=== PATIENT | male | born 1960 | race Hispanic/Latino ===

== ENCOUNTER 2017-03-13 09:23 | Day surgery (SDC) | payer BC ==
[2017-03-13] MEDS ORDERED: NACL 0.9% 1000 ML 1,000 ML IV SCH (10:00)
--- NOTE | 2017-03-13 10:38 | Anesthesia Consultation ---
Anesthesia Consult and Med Hx Date of service: 03/13/17 - Airway Anesthetic Teeth Evaluation: Good ROM Head & Neck: Adequate Mental/Hyoid Distance: Adequate Mallampati Class: Class II Intubation Access Assessment: Probably Good - Pulmonary Exam CTA: Yes - Cardiac Exam Cardiac Exam: RRR - Pre-Operative Health Status ASA Pre-Surgery Classification: ASA2 Proposed Anesthetic Plan: MAC - Pulmonary Hx Smoking: Yes (CHEWING TOBACCO X 3 YEARS) Hx Sleep Apnea: Yes (AFTER SURGERY DOES NOT HAVE ISSUES WITH BON) - Cardiovascular System Hx Hypertension: Yes (1993) - Central Nervous System Hx Psychiatric Problems: No - Gastrointestinal Hx Gastroesophageal Reflux Disease: Yes (on meds) - Endocrine Hx Insulin 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
--- NOTE | 2017-03-13 10:38 | Anesthesia Day of Surgery ---
Anesthesia Day of Surgery - Day of Surgery Patient Examined: Yes Patient H&P Reviewed: Yes Patient is NPO: Yes
[2017-03-13] MEDS ORDERED: DIPRIVAN 10 MG/ML IV ONE ×2 (11:59)
--- NOTE | 2017-03-13 12:19 | Short Stay Summary ---
Short Stay Documentation - History H&P: obtained from office - Allergies and Medications Current Medications: Allergies acetaminophen [From Percocet] Allergy (Unverified 07/11/16 10:47) Nausea nitroglycerin Allergy (Unverified 07/11/16 10:47) Hives oxycodone HCl [From Percocet] Allergy (Unverified 07/11/16 10:47) Nausea Penicillins Allergy (Verified 07/09/14 09:47) Unknown Home Medications Medication Instructions Recorded Confirmed Last Taken Type Aspirin EC [Aspirin Enteric Coated 81 mg PO QDAY 07/07/14 07/14/14 03/09/17 History TAB] Benazepril HCl 20 mg PO DAILY 07/07/14 07/14/14 03/13/17 06:00 History Colesevelam [Welchol] 1,250 mg PO BID 07/07/14 07/14/14 03/12/17 History Levothyroxine [Synthroid] 50 mcg PO QAM 07/07/14 07/14/14 03/12/17 History Loratadine [Claritin RAPDIS] 10 mg PO QDAY 07/07/14 07/14/14 07/13/14 History Lovastatin [Altoprev] 20 mg PO QPM 07/07/14 07/14/14 07/13/14 History Nortriptyline [Pamelor] 50 mg PO QDAY 07/07/14 07/14/14 07/13/14 History Omeprazole [Prilosec] 20 mg PO QDAY 07/07/14 07/14/14 03/12/17 History amLODIPine [Norvasc] 10 mg PO DAILY 07/07/14 07/14/14 03/13/17 06:00 History metFORMIN [Glucophage] 500 mg PO BID 07/07/14 07/14/14 07/13/14 History Active Medications Sodium Chloride (Nacl 0.9% 1000 Ml) 1,000 mls @ 50 mls/hr IV DIRECT ANJU Last Admin: 03/13/17 10:35 Dose: 50 mls/hr - Brief post op/procedure progress note Date of procedure: 03/13/17 Pre-op diagnosis: Esophageal stricture/dysphagia Post-op diagnosis: same Procedure: EGD/Dilation Anesthesia: MAC Findings: 1. Distal esophageal stricture at Z-line at 42 cm. Balloon dilated from 15 to 18 mm. 2. 3 cm hiatal hernia. 3. Otherwise normal EGD Surgeon: CHAU MORRIS Estimated blood loss: minimal Pathology: none Condition: stable - Disposition Condition at discharge: Good Disposition: DC-01 TO HOME OR SELFCARE Short Stay Discharge Plan Diet: regular Follow up with: HILLARY JACOBSEN MD [Primary Care Provider] - 7 Days
[2017-03-13 12:52] VITALS: BP 115/65
--- NOTE | 2017-03-13 13:53 | Post Anesthesia Evaluation ---
- Post Anesthesia Evaluation Patient Participated: Yes Airway Patent: Yes Stable Respiratory Function: Yes Temp > 96.8F: Yes Pain Manageable: Yes Adequeate Hydration: Yes Anesthesia Complications: No Block Receding Appropriately: Not Applicable
--- NOTE | 2017-03-13 19:18 | Operative Report ---
PROCEDURE: Upper endoscopy with balloon dilation. PREOPERATIVE DIAGNOSES: Dysphagia and esophageal stricture. POSTOPERATIVE DIAGNOSES: Esophageal stricture and hiatal hernia. SEDATION: MAC by Anesthesia. HISTORY: The patient is a 57-year-old man with a known history of distal esophageal stricture, dilated multiple times in the past and last dilated with Kenalog injection done at that time. He did well for more than a year, but has had recurrent symptoms. DESCRIPTION OF PROCEDURE: Indications, risks, and benefits were explained and consent was obtained. The patient was placed in left lateral decubitus position and sedated. Tracelytics video upper scope was passed through the mouth and oropharynx into the descending duodenum. Scope was then gradually withdrawn with close inspection of the mucosa. FINDINGS: 1. Distal esophageal stricture - peptic in nature, located at 42 cm. Scope passed readily through this. This was balloon dilated from 15 to 18 mm with appropriate mucosal tearing and self-limited bleeding noted. 2. A 3-cm hiatal hernia. 3. Otherwise, normal esophagus. 4. Normal appearing gastric antrum, fundus, body, and cardia. 5. Normal appearing duodenal bulb and duodenum. The patient tolerated the procedure well without immediate complications. IMPRESSION: 1. Distal esophageal stricture - peptic in origin. Balloon dilated to 18 mm. 2. Hiatal hernia. 3. Otherwise, normal exam. PLAN: 1. Continue chronic proton pump inhibitors. 2. Dilate p.r.n. JOB# [id number] HRC/NTS
== END 2017-03-13 09:24 | disposition home or self-care (01) ==
LOC: GIO 09:23
PROVIDERS: ATTEND Internal Medicine Gastroenterology
DX: K22.2 Esophageal obstruction (principal); K44.9 Diaphragmatic hernia without obstruction or gangrene; I10 Essential (primary) hypertension; K21.9 Gastro-esophageal reflux disease without esophagitis; E03.9 Hypothyroidism, unspecified; Z88.8 Allergy status to other drugs, medicaments and biological substances; Z88.0 Allergy status to penicillin; Z85.46 Personal history of malignant neoplasm of prostate; Z98.890 Other specified postprocedural states; Z79.899 Other long term (current) drug therapy; Z79.82 Long term (current) use of aspirin; Z87.891 Personal history of nicotine dependence; Z82.49 Family history of ischemic heart disease and other diseases of the circulatory system
CPT/HCPCS: 43249; C1726; J2704; J7030